=== PATIENT | female | born 1990 | race Two or more races ===

== ENCOUNTER 2016-10-02 18:45 | Emergency (ER) | payer MEDICAID ==
[~2016-10-02] VITALS: Ht 160 cm; Wt 65.8 kg
[2016-10-02 19:24] VITALS: BP 128/78
== END 2016-10-02 22:04 | disposition left against medical advice (07) ==
LOC: ER 19:00
DX: M79.641 Pain in right hand (principal); M25.551 Pain in right hip; Z53.21 Procedure and treatment not carried out due to patient leaving prior to being seen by health care provider; V43.52XA Car driver injured in collision with other type car in traffic accident, initial encounter; Y93.89 Activity, other specified; Y99.8 Other external cause status; Y92.89 Other specified places as the place of occurrence of the external cause